=== PATIENT | female | born 1980 | race Caucasian/White ===

== ENCOUNTER 2017-02-20 09:19 | Outpatient (CLI) | payer MEDICAID ==
[~2017-02-20] VITALS: Ht 160 cm; Wt 82.7 kg
[2017-02-20 09:50] VITALS: Ht 160 cm; Wt 82.7 kg
[2017-02-20 09:51] VITALS: BP 124/58; PULSE 99; RESP 22
--- NOTE | 2017-02-20 10:25 | RADRPT ---
PROCEDURE: Obstetrical ultrasound for biophysical profile CLINICAL INDICATION: Biophysical profile. . TECHNIQUE: Obstetrical ultrasound of the uterus for biophysical profile. Transabdominal views are obtained. COMPARISON: 10/12/2016 FINDINGS: Single intrauterine gestation. Presentation: Cephalic. Placenta: Fundal No evidence of placental abruption. No evidence of placenta previa. breathing movement = 2/2 tone = 2/2 motion = 2/2 KELSEA = 2/2 KELSEA = 8.7 cm heart rate: 148 beats per minute IMPRESSION: Single intrauterine gestation. Biophysical profile 11/09 RPTAT: AADD .Moody Virk MD, MD Date Time Electronically viewed and signed by .Moody iVrk MD, on 02/20/2017 10:24 .B/
[2017-02-20] MEDS ORDERED: LACTATED RINGER'S 1,000 ML IV SCH (10:30)
--- NOTE | 2017-02-20 11:32 | PN ---
Triage Information Date/Time Reason for visit: Decreased movement Weeks of Gestation 39 weeks and 1 day /Para Diabetes: none Hypertention: none Objective Vital Signs Date Time Temp Pulse Resp B/P Pulse Ox O2 Delivery O2 Flow Rate FiO2 02/20/17 09:51 98.8 99 22 124/58 99 Room Air Heart Rate: 150's Contractions: None Exam Nurse exam, cervix closed long, vertex -2 station Results/Medications Medications Current Medications Lactated Ringer's (Lr) 1,000 ml @ 125 mls/hr Q8H IV Last administered on 02/20t 10:33; Admin Dose 125 MLS/HR; Start 02/20/17 at 10:30 Disposition: Extended observation, for tachycardia, we will review heart tracing after 1 L of IV is completed FCO OLEARY MD Feb 20, 2017 11:32
== END 2017-02-20 12:46 | disposition home or self-care (01) ==
LOC: OBT 09:19 → L-D 09:20 → OBG 09:59 → OBT 12:46
PROVIDERS: ATTEND Obstetrics & Gynecology
DX: O36.8130 Decreased fetal movements, third trimester, not applicable or unspecified (principal); Z3A.39 39 weeks gestation of pregnancy
CPT/HCPCS: 76818; J7120

== ENCOUNTER 2017-02-22 18:17 | Outpatient (CLI) | payer MEDICAID ==
[~2017-02-22] VITALS: Ht 160 cm; Wt 83.8 kg
--- NOTE | 2017-02-22 19:14 | RADRPT ---
PROCEDURE: US OB. CLINICAL INDICATION: Decreased movement TECHNIQUE: Multiple sonographic images of the pelvis were obtained. The images were reviewed on a PACS workstation. COMPARISON: No prior studies are available for comparison. FINDINGS: There is a single live intrauterine . cardiac activity is identified at a rate of 15 4 beats per minute. presentation is cephalic. Placenta is fundal grade II. Biophysical profile score is as follows: Breathing 2 Movements 2 Tone 2 Fluid volume 2 Amniotic fluid index = 8.4 cm Total biophysical profile score = 8/8 IMPRESSION: Biophysical profile score = 8/8 RPTAT: HH .Jun Eaton MD, MD Date Time Electronically viewed and signed by .Jun Eaton MD, on 02/22/2017 19:14 .W/
[2017-02-22 19:22] VITALS: Ht 160 cm; Wt 83.8 kg
[2017-02-22 19:23] VITALS: BP 114/58; PULSE 85; RESP 18
[2017-02-22] MEDS ORDERED: PNV1TABL12 PO (19:34)
--- NOTE | 2017-02-22 21:16 | PN ---
Triage Information Date/Time Reason for visit: DFM Weeks of Gestation 39 weeks /Para Diabetes: none Hypertention: none Objective Vital Signs Date Time Temp Pulse Resp B/P Pulse Ox O2 Delivery O2 Flow Rate FiO2 02/22/17 19:23 98.8 85 18 114/58 98 Room Air Heart Rate: 120's Heart Rate Comments Category I Contractions: 6-10 Minutes Apart Exam Cervix fingertip Results/Medications Imaging Results BPP 11/09 Disposition: Discharge Assessment/Plan Patient reports good movement while being monitored Follow up with Dr Ordoñez on 02/23/2017 Antepartum testing on 02/24/2017. DEISY SAVAGE MD Feb 22, 2017 21:16
== END 2017-02-22 21:27 | disposition home or self-care (01) ==
LOC: OBT 18:17 → L-D 18:18 → OBT 21:27
PROVIDERS: ATTEND Obstetrics & Gynecology
DX: O36.8130 Decreased fetal movements, third trimester, not applicable or unspecified (principal); O09.523 Supervision of elderly multigravida, third trimester; Z3A.39 39 weeks gestation of pregnancy
CPT/HCPCS: 76818; Z7500; G0463

== ENCOUNTER 2017-02-24 09:40 | Outpatient (CLI) | payer MEDICAID ==
[~2017-02-24] VITALS: Ht 160 cm; Wt 83.6 kg
[~2017-02-24 09:40] MED LIST: PNV1TABL12 PO
[2017-02-24 09:48] VITALS: Ht 160 cm; Wt 83.6 kg
[2017-02-24 09:49] VITALS: BP 124/58; PULSE 94; RESP 20
--- NOTE | 2017-02-24 10:35 | RADRPT ---
PROCEDURE: US biophysical profile. CLINICAL INDICATION: Decreased motion. TECHNIQUE: Multiple sonographic images of the uterus were obtained. The images were revi ewed on a PACS workstation. COMPARISON: No prior studies are available for comparison. FINDINGS: There is a single live intrauterine gestation. heart rate is 174 beats per minute. The position is cephalic. The placenta is fundal grade II with no abruption or previa. The KELSEA is 12.8 cm. (Normal = 5-20 cm.) Breathing Movement: 2 Gross Body Movement: 2 Tone: 2 Qualitative Amniotic Fluid Volume: 2 TOTAL: 8 IMPRESSION: 1. The biophysical score is 8/8. RPTAT: QQ .Terry Forrest MD, MD Date Time Electronically viewed and signed by .Terry Forrest MD, on 02/24/2017 10:34 .R/
--- NOTE | 2017-02-24 10:55 | CONS ---
Date/Time of Note Date/Time of Note DATE: 02/24/17 TIME: 10:49 Consultation Date/Type/Reason Admit Date/Time February 24, 2017 OB triage consult This patient is a 36 years old 2 para 1 with estimated date of confinement of February 26, 2017 which makes her 39 weeks and 5 days . Her chief complaint is low movement since yesterday. On examination she is somewhat overweight patient. Her general vital signs appear to be within normal limits with blood pressure 124/58, pulse rate 94, respiration 20, and temperature 98.5. Constitutional: No chills, No diaphoresis, No disoriented, No febrile, No improved, No no complaints, No other, No poor po, No requiring IVF, No requiring O2 Eyes: No discharge, No no complaints, No other, No pain, No redness, No visual change ENT: No bleeding, No congestion, No discharge, No dysphagia, No no complaints, No other, No pain, No sore throat Respiratory: No cough, No no complaints, No other, No pain, No pleuritic pain, No shortness of breath, No sputum, No wheezing Cardiovascular: No chest pain, No edema, No lightheadedness, No no complaints, No orthopenea, No other, No palpitations, No paroxysmal nocturnal dyspnea Gastrointestinal: other, No blood, No constipation, No decreased appetite, No diarrhea, No flatus, No nausea, No no complaints, No pain, No passing stool, No vomiting Genitourinary: other (We did not do any pelvic examination due to the fact that she did not have any contraction at this time), No bleeding, No discharge, No dysuria, No flank pain, No hematuria, No no complaints Musculoskeletal: No back pain, No bone/joint pain, No neck pain, No no complaints, No other, No restricted range of motion, No swelling Skin: No bruising, No erythema, No laceration, No no complaints, No other, No pruritis, No rash, No skin lesions Neurologic: other (.), No confusion, No dizziness, No focal-weakness, No headache, No no complaints , No seizure, No syncope Additional Comments Her non stress test as I mentioned was reactive On ultrasound study the report was; a single live intrauterine gestation with heart beat of 174 in cephalic presentation, placenta was grade 2 , no evidence of abruption ,her amniotic fluid index was 12.8 cm The biophysical profile was reported 11/09 Disposition; with these finding patient was discharged home and she will be followed in 4 days for further monitoring Social History Smoking Status: Never smoker Exam/Review of Systems Vital Signs Vitals Vital Signs Date Time Temp Pulse Resp B/P Pulse Ox O2 Delivery O2 Flow Rate FiO2 02/24/17 09:49 98.5 94 20 124/58 Room Air CARYN BALL MD Feb 24, 2017 10:55
--- NOTE | 2017-02-24 10:58 | TRIAGE ---
OB Triage Datetime Report Generated by CPN: 02/24/2017 10:57 Datetime: 02/24/2017 10:52 Maternal Assessment Level of Consciousness: Fully Conscious DTR's/Clonus: DTRs 1+ Headache: Denies Blurred Vision: No Respiratory Effort: Unlabored Breath Sounds, Left: Clear and Equal Breath Sounds, Right: Clear and Equal Nausea/Vomiting: Denies RUQ Epigastric Pain: Denies Facial Edema: None Labor Evaluation Frequency: NONE Monitor Mode: External Resting Tone [place]: Relaxed Heart Rate FHR Baseline Rate: 140 Monitor Mode: External US Variability: Moderate 6-25 bpm Accelerations: 15X15 Decelerations: None Category: Category I Pain Assessment Pain Scale: 0 Pain Presence: None/Denies Pain Type: N/A Pain Goal: 3 Vaginal Exam Dilatation (cms): 0.0 Effacement (%): 0 Station: -3 Exam By: ZECHARIAH DIALLO Membrane Status: Intact Vaginal Bleeding: None Cervix, Consistency: Moderate Cervix, Position: Posterior Presentation 'A': Cephalic Datetime: 02/24/2017 10:36 Maternal Assessment Level of Consciousness: Fully Conscious DTR's/Clonus: DTRs 1+ Headache: Denies Blurred Vision: No Respiratory Effort: Unlabored Breath Sounds, Left: Clear and Equal Breath Sounds, Right: Clear and Equal Nausea/Vomiting: Denies RUQ Epigastric Pain: Denies Facial Edema: None Labor Evaluation Frequency: IRREGULAR Monitor Mode: External Duration (sec)5589: 50-02 Quality: Mild Pattern: Normal: <= 5 Contractions in 10 Minutes Resting Tone [place]: Relaxed Heart Rate FHR Baseline Rate: 140 Monitor Mode: External US Variability: Moderate 6-25 bpm Accelerations: 15X15 Decelerations: None Category: Category I Pain Assessment Pain Scale: 0 Pain Presence: None/Denies Pain Type: N/A Pain Goal: 3 Membrane Status: Intact Datetime: 02/24/2017 09:45 Time of Arrival: 02/24/2017 09:40 EGA: 39.5 Arrived By: Ambulatory Arrived From: Home Chief Complaint: FOLLOW UP NST AND BPP Movement: Present Contractions: Irregular Rupture of Membranes: Denies Vaginal Discharge: Denies Recent Sexual Intercouse: Denies Abdominal Trauma: Not Applicable Patient Complaints: Other Time Provider Notified: 02/24/2017 09:55 Provider Notified: MANUEL Initial Plan: BPP, NST Datetime: 02/24/2017 09:44 Stage of : OB Triage Assessment Type: Triage Maternal Assessment Level of Consciousness: Fully Conscious Headache: Denies Blurred Vision: No Respiratory Effort: Unlabored Nausea/Vomiting: Denies RUQ Epigastric Pain: Denies Lower Extremities Edema: None Degree: None Upper Extremities Edema: None Degree: None Facial Edema: None Monitor Mode: External Monitor Mode: External US Pain Assessment Pain Scale: 0 Pain Presence: None/Denies Pain Type: N/A Pain Goal: 0 Datetime: 02/22/2017 21:09 Stage of : OB Triage Labor Evaluation Frequency: X3 Monitor Mode: External Duration (sec)2399: 60-120 Quality: Mild Pattern: Normal: <= 5 Contractions in 10 Minutes Resting Tone [place]: Relaxed Heart Rate FHR Baseline Rate: 135 Monitor Mode: External US FHR Baseline Changes: No Baseline Change Variability: Moderate 6-25 bpm Accelerations: 15X15 Decelerations: None Category: Category I Datetime: 02/22/2017 20:01 Stage of : OB Triage Labor Evaluation Frequency: X2 Monitor Mode: External Duration (sec)2399: 40-130 Quality: Mild Resting Tone [place]: Relaxed Heart Rate FHR Baseline Rate: 140 Monitor Mode: External US Variability: Moderate 6-25 bpm Accelerations: 15X15 Decelerations: None Category: Category I Pain Assessment Pain Scale: 3 Pain Presence: Intermittent Pain Type: Contraction Pain Location: Abdomen Pain Relief Measures: Comfort Measures Pain Assessment Comments: WITH UCS Datetime: 02/22/2017 19:52 Stage of : OB Triage Datetime: 02/22/2017 19:18 Assessment Type: Triage Maternal Assessment Level of Consciousness: Fully Conscious DTR's/Clonus: DTRs Absent Headache: Denies Blurred Vision: No Respiratory Effort: Unlabored Breath Sounds, Left: Clear and Equal Breath Sounds, Right: Clear and Equal Nausea/Vomiting: Denies RUQ Epigastric Pain: Denies Lower Extremities Edema: None Degree: None Upper Extremities Edema: None Degree: None Facial Edema: None Fall Risk Assessment History of Falling: (0) No Secondary Diagnosis: (0) No Ambulatory Aid: (0) Bedrest/Nurse Assist IV Therapy: (0) No Gait: (0) Normal/Bedrest/Immobile Mental Status: (0) Oriented to Own Ability Fall Score: 0 Fall Risk Score Definition: No Risk: No action required Datetime: 02/22/2017 19:16 Time of Arrival: 02/22/2017 18:10 EGA: 39.3 Arrived By: Ambulatory Arrived From: Home Chief Complaint: F/U DFM Movement: Present Contractions: Occasional Rupture of Membranes: Denies Vaginal Bleeding: None Vaginal Discharge: Denies Recent Sexual Intercouse: Denies Abdominal Trauma: Not Applicable Patient Complaints: None Initial Plan: VS, EFM, BPP Datetime: 02/22/2017 19:05 Stage of : OB Triage Monitor Mode: External Monitor Mode: External US Datetime: 02/20/2017 12:16 Comments: maternal h.r. p/u w/ pt. moving to sit up and drink water. maternal h.r. verified throug h pulse ox Datetime: 02/20/2017 12:11 Labor Evaluation Frequency: irreg Monitor Mode: External Duration (sec)2399: 30-90 Quality: Mild Resting Tone [place]: Relaxed Heart Rate FHR Baseline Rate: 150 Monitor Mode: External US Variability: Moderate 6-25 bpm Accelerations: 15X15 Decelerations: None Datetime: 02/20/2017 11:30 Labor Evaluation Frequency: irreg Monitor Mode: External Duration (sec)2399: 90 Quality: Mild Resting Tone [place]: Relaxed Heart Rate FHR Baseline Rate: 150 Monitor Mode: External US Variability: Minimal - Undetectable to <=5 bpm Accelerations: 15X15 Decelerations: None Datetime: 02/20/2017 11:25 Comments: dr. manuel rvwd. strip from time arrived until now. cont. iv hydration and re-eval Datetime: 02/20/2017 11:20 Pain Presence: None/Denies Datetime: 02/20/2017 10:36 Vaginal Exam Dilatation (cms): 0.0 Effacement (%): 0 Station: 0 Exam By: -3 Vaginal Bleeding: None Cervix, Consistency: Firm Cervix, Position: Posterior Presentation 'A': Cephalic Datetime: 02/20/2017 09:55 Heart Rate FHR Baseline Rate: 170 Variability: Minimal - Undetectable to <=5 bpm Comments: cont. to monitor. increased movements are visisble to rn and pt. and fob Datetime: 02/20/2017 09:42 Comments: increased movement visible to rn and pt. at this time. Datetime: 02/20/2017 09:40 Assessment Type: Triage Maternal Assessment Level of Consciousness: Fully Conscious DTR's/Clonus: DTRs 2+; No Clonus Headache: Denies Blurred Vision: No Respiratory Effort: Unlabored; Regular Rhythm; Equal Expansion Breath Sounds, Left: Clear and Equal Breath Sounds, Right: Clear and Equal Nausea/Vomiting: Denies RUQ Epigastric Pain: Denies Lower Extremities Edema: None Upper Extremities Edema: None Facial Edema: None Fall Risk Assessment History of Falling: (0) No Secondary Diagnosis: (0) No Ambulatory Aid: (0) Bedrest/Nurse Assist IV Therapy: (0) No Gait: (0) Normal/Bedrest/Immobile Mental Status: (0) Oriented to Own Ability Fall Score: 0 Fall Risk Score Definition: No Risk: No action required Datetime: 02/20/2017 09:38 EGA: 39.1 Datetime: 02/20/2017 09:37 Time of Arrival: 02/20/2017 09:32 Arrived By: Wheelchair Arrived From: Other Unit in Hospital Chief Complaint: rcvd. pt. via wheelchair from ob triage. note already in cpn Movement: Decreased Contractions: Occasional Rupture of Membranes: Denies Vaginal Bleeding: None Vaginal Discharge: Denies Recent Sexual Intercouse: Denies Abdominal Trauma: Not Applicable Patient Complaints: Other Additional Patient Complaints: pt. states decreased movement since 02/19/17 Initial Plan: efm bpp nst Datetime: 02/20/2017 09:35 Contraction Comments: denies Pain Presence: None/Denies
== END 2017-02-24 10:55 | disposition home or self-care (01) ==
LOC: OBT 09:40 → L-D 09:40 → OBT 10:55
PROVIDERS: ATTEND Obstetrics & Gynecology
DX: O36.8130 Decreased fetal movements, third trimester, not applicable or unspecified (principal); Z3A.39 39 weeks gestation of pregnancy
CPT/HCPCS: 76818; G0463

== ENCOUNTER 2017-02-25 08:25 | Inpatient (IN) | payer MEDICAID ==
[~2017-02-25] VITALS: Ht 160 cm; Wt 84.9 kg
[~2017-02-25 08:25] MED LIST changes: +EPHEDrine SULFATE 50 MG/5 ML SYG ONE; +METHYLERGONOVINE 0.2 MG INJ ONE
[2017-02-25 08:43] VITALS: BP 128/61; PULSE 88; Ht 160 cm; Wt 84.9 kg
[2017-02-25] MEDS ORDERED: LACTATED RINGER'S 1,000 ML IV SCH (09:25)
[2017-02-25] MEDS ORDERED: METHYLERGONOVINE 0.2 MG INJ IM PRN ×2 (09:30→16:00)
[2017-02-25] MEDS ORDERED: OXYTOCIN 30 UNITS/LR 500 ML IV SCH ×3 (09:30→10:30)
[2017-02-25] MEDS ORDERED: CARBOPROST 250 MCG INJ IM PRN ×2 (09:30→16:00)
[2017-02-25] MEDS ORDERED: BUTORPHANOL 2 MG INJ IV PRN (09:30)
[2017-02-25] MEDS ORDERED: IBUPROFEN 600 MG TAB PO PRN (09:30)
[2017-02-25] MEDS ORDERED: MISOPROSTOL 200 MCG TAB PR PRN ×2 (09:30→16:00)
[2017-02-25] MEDS ORDERED: OXYTOCIN 30 UNITS/LR 500 ML IV PRN ×2 (09:30→16:00)
[2017-02-25] MEDS ORDERED: LIDOCAINE 1% (MPF) 30 ML INJ INJ PRN (09:30)
[2017-02-25] MEDS ORDERED: AMPICILLIN 2 GM/NS (PMX) 100 ML IV ONE (09:30)
[2017-02-25] MEDS ORDERED: HYDROCODONE/APAP (5/325) TAB PO PRN ×2 (09:30→16:00)
--- NOTE | 2017-02-25 09:34 | TRIAGE ---
OB Triage Datetime Report Generated by CPN: 02/25/2017 09:34 Datetime: 02/25/2017 09:05 Assessment Type: Admission Assessment Vaginal Bleeding: None Level of Consciousness: Fully Conscious DTR's/Clonus: DTRs 2+; No Clonus Headache: Denies Blurred Vision: No Respiratory Effort: Unlabored; Regular Rhythm; Equal Expansion Breath Sounds, Left: Clear and Equal Breath Sounds, Right: Clear and Equal Nausea/Vomiting: Denies RUQ Epigastric Pain: Denies Lower Extremities Edema: Bilateral Lower Extremities Degree: 1+ Upper Extremities Edema: None Degree: None Facial Edema: None History of Falling: (0) No Secondary Diagnosis: (0) No Ambulatory Aid: (0) Bedrest/Nurse Assist IV Therapy: (0) No Gait: (0) Normal/Bedrest/Immobile Mental Status: (0) Oriented to Own Ability Fall Score: 0 Fall Risk Score Definition: No Risk: No action required Frequency: 5 Duration (sec)2399: 60 Quality: Moderate Pattern: Normal: <= 5 Contractions in 10 Minutes Resting Tone [place]: Relaxed FHR Baseline Rate: 160 Variability: Moderate 6-25 bpm Accelerations: 15X15 Decelerations: None Category: Category I Pain Scale: 6 Pain Presence: Intermittent Pain Type: Contraction Pain Location: Abdomen Pain Goal: 4 Membrane Status: Intact Datetime: 02/25/2017 08:37 Stage of : OB Triage Assessment Type: Triage Level of Consciousness: Fully Conscious DTR's/Clonus: DTRs 2+; No Clonus Headache: Denies Blurred Vision: No Respiratory Effort: Unlabored; Regular Rhythm; Equal Expansion Breath Sounds, Left: Clear and Equal Breath Sounds, Right: Clear and Equal Nausea/Vomiting: Denies RUQ Epigastric Pain: Denies Facial Edema: None Temperature Route: Axillary History of Falling: (0) No Secondary Diagnosis: (0) No Ambulatory Aid: (0) Bedrest/Nurse Assist IV Therapy: (0) No Gait: (0) Normal/Bedrest/Immobile Mental Status: (0) Oriented to Own Ability Fall Score: 0 Fall Risk Score Definition: No Risk: No action required Frequency: X1 Monitor Mode: External Duration (sec)2399: 30 Quality: Mild Pattern: Normal: <= 5 Contractions in 10 Minutes Resting Tone [place]: Relaxed FHR Baseline Rate: 150 Monitor Mode: External US Variability: Minimal - Undetectable to <=5 bpm Decelerations: None Category: Category II Pain Scale: 8 Pain Presence: Intermittent Pain Type: Cramping; Contraction Pain Location: Abdomen Pain Goal: 3 Pain Relief Measures: Comfort Measures Dilatation (cms): 2.5 Effacement (%): 80 Station: -2 Exam By: Kurt PALENCIA Membrane Status: Intact Datetime: 02/25/2017 08:35 Time of Arrival: 02/25/2017 08:25 EGA: 39.6 Arrived By: Ambulatory Arrived From: Home Chief Complaint: C/O UC'S SINCE 4AM Q 5MIN, SM AMT OF BLEEDING, DENIES LEAKING OF FLUID Movement: Present Contractions: Regular Rupture of Membranes: Denies Vaginal Bleeding: Small Vaginal Discharge: Denies Recent Sexual Intercouse: Denies Abdominal Trauma: Not Applicable Patient Complaints: Contractions; Cramping Initial Plan: MONITOR, VE Datetime: 02/24/2017 09:45 EGA: 39.5 Datetime: 02/22/2017 19:18 Fall Score: 0 Fall Risk Score Definition: No Risk: No action required Datetime: 02/22/2017 19:16 EGA: 39.3 Datetime: 02/20/2017 09:40 Fall Score: 0 Fall Risk Score Definition: No Risk: No action required Datetime: 02/20/2017 09:38 EGA: 39.1
[2017-02-25] MEDS ORDERED: LACTATED RINGER'S 1,000 ML IV PRN (10:00)
[2017-02-25 10:22] LABS: BASOPHIL # 0.1 10^3/ul (0.0-0.1); BASOPHILS % 0.6 % (0.0-2.0); EOSINOPHILS # 0.2 10^3/ul (0.0-0.5); EOSINOPHILS % 1.5 % (0.0-7.0); LYMPHOCYTES # 1.7 10^3/ul (0.8-2.9); LYMPHOCYTES % 14.8 % (15.0-51.0); MEAN CORPUSCULAR HEMOGLOBIN 30.4 pg (29.0-33.0); MEAN CORPUSCULAR HGB CONC 34.3 g/dl (32.0-37.0); MEAN CORPUSCULAR VOLUME 88.6 fl (82.0-101.0); MEAN PLATELET VOLUME 10.3 fl (7.4-10.4); MONOCYTE # 0.8 10^3/ul (0.3-0.9); MONOCYTES % 6.8 % (0.0-11.0); NEUTROPHIL # 8.6 10^3/ul (1.6-7.5); NEUTROPHILS % 75.3 % (39.0-77.0); PLATELET COUNT 245 10^3/UL (140-415); RED BLOOD COUNT 3.95 10^6/ul (4.20-5.40); RED CELL DISTRIBUTION WIDTH 14.1 % (11.5-14.5); WHITE BLOOD COUNT 11.4 10^3/ul (4.8-10.8)
[2017-02-25] MEDS ORDERED: MINERAL OIL LIGHT 10 ML VIAL TOP ONE (10:30)
[2017-02-25] MEDS ORDERED: FENTAnyl 2MCG/ML-ROPIV 0.2% 100 ML ONE (11:25)
[2017-02-25 11:45] LABS: INR 0.88; PROTIME 11.9 Sec (12.2-14.2); PT RATIO 0.9
[2017-02-25] MEDS ORDERED: CEFAZOLIN 2 GM/50 ML (PMX) 50 ML IVPB ONE ×3 (12:13→13:30)
[2017-02-25] MEDS ORDERED: METOCLOPRAMIDE 10 MG INJ ONE (12:26)
[2017-02-25] MEDS ORDERED: ONDANSETRON 4 MG INJ ONE (12:27)
[2017-02-25] MEDS ORDERED: PHENYLephrine (100 MCG/ML) 5ML SYG ONE (12:32)
[2017-02-25] MEDS ORDERED: morphine SULFATE/PF (10 MG/10 ML) INJ ONE (12:43)
[2017-02-25] MEDS ORDERED: PROPOFOL 20 ML ONE (12:45)
[2017-02-25] MEDS ORDERED: LIDOCAINE 2%/EPI 30 ML INJ ONE (12:45)
[2017-02-25 12:50] LABS: Arterial Cord Blood pCO2 115.6 mmHG (25-50); CBA Base Excess -9.2 mmol/L; CBA Total Hemglobin 14.1 g/dl; Fraction OxyHgb Cord Arterial 5.2 %; MODE ROOM AIR; MetHgb Cord Arterial 2.5 %; Sample Type CBA
[2017-02-25 12:51] LABS: CBV Base Excess -5.4 mmol/L; CBV COHb 1.6 %; CBV Oxygen Sat 84.3 mmHG; Cord Blood Venous pO2 47.2 mmHG (15.0-45.0); Fraction OxyHgb Cord Venous 82.4 %; MODE ROOM AIR; MetHgb Cord Venous 0.7 %; Sample Type CBV
[2017-02-25] MEDS ORDERED: AMPICILLIN 1 GM/NS (PMX) 50 ML IV SCH (13:30)
[2017-02-25] MEDS ORDERED: AZITHROMYCIN 500MG/NS (PMX) 250 ML IVPB SCH (13:30)
--- NOTE | 2017-02-25 13:53 | OPR ---
Operative Report Planned Procedure Free Text/Dictation This is a 36 years old female SAB 1 admitted to [facility] in early labor pelvic examination and admission cervix 2-1 /2-3 cm dilated 80% effaced vertex at -2 station due to inadequate labor force and frequency of contraction she required labor augmentation with low-dose Pitocin at approximately 4 cm cervical dilatation she requested labor epidural , she progressed to 7cm with vertex presentation and bulging bag, amniotomy performed at 7 cm clear amniotic fluid noted her labor continued to progress when cervix was completely dilated her attending nurse noted sudden prolonged variable deceleration down into the 90s ,when she was checked by her nurse, she noted prolapsed cord approximately 10-12 cm of umbilical cord in the vaginal canal, she kept her hand in the vagina to push the baby's head up to protect umbilical cord from compression and called for an emergency ,time from decision to delivery of the baby approximately 12-13 minute.. Procedure date Feb 25, 2017 Procedure(s) Emergency primary section Performed by see signature line Outpatient Therapist DR MCCOY Anesthesiologist: CHELSEA OSBORNE MD Pre-procedure diagnosis Term in labor cord prolapse Anesthesia Type: epidural Post-Procedure Post-procedure diagnosis Term in active labor, sodium cord prolapse Findings Live baby girl 8 and 9 Estimated Blood Loss: 600 - 700 mls Specimen(s) none Grafts/Implant(s) none Complication(s) none Pt Condition post procedure: stable Procedure Description Under satisfactory epidural anesthesia patient prepped and draped and placed in supine position. Pfannenstiel incision was made. Incision carried through the subcutaneous tissue. Fascia incised to the length of incision. Rectus muscle divided in midline. Peritoneum exposed and entered to a vertical incision. Exploration of abdomen revealed [gravid uterus at term normal-appearing tubes and ovaries.] Bladder flap was developed. Transverse incision was made in the lower segment of the uterus. Amniotic sac ruptured, [clear amniotic fluid noted. ] Live baby girl was delivered from [place] breech presentation with assisted breech extraction shoulders delivered without any difficulty head delivered with Mauriceau maneuver (it seems during the process of transferring patient from her room to the OR baby has changed position from vertex to breech presentation )Naso oropharyngeal suction was performed. Baby handed to the team for immediate attention. Patient received 20 units of Pitocin. Placenta delivered manually intact. Uterine cavity cleaned with a wet sponge and drainage established. Uterus closed in 2 layers using Monocryl #1 in continuous fashion. Peritoneal cavity irrigated with warm saline. Sponge needle instrument reported to be correct. Abdominal peritoneum closed with 2-0 chromic catgut continuously. Fascia closed with #1 PDS in a continuous fashion. Subcutaneous tissue irrigated with warm saline and approximated with 2-0 chromic catgut skin closed N sorb. Estimated blood loss [6-700 cc]. Urine bag containing [200] mL of [clear] urine. Patient tolerated procedure well and transferred to recovery room in good condition. FCO OLEARY MD Feb 25, 2017 13:41
[2017-02-25] MEDS ORDERED: NALOXONE (0.4 MG/ML) INJ IV PRN ×2 (14:00)
[2017-02-25] MEDS ORDERED: FENTAnyl 2MCG/ML-ROPIV 0.2% 100 ML BAG EPI SCH (14:00)
[2017-02-25] MEDS ORDERED: ONDANSETRON 4 MG INJ IV PRN ×2 (14:00)
[2017-02-25] MEDS ORDERED: morphine (1 MG/ML) 10ML SYRINGE IV PRN ×3 (14:00)
[2017-02-25] MEDS ORDERED: morphine 2 MG INJ IV PRN ×2 (14:00)
[2017-02-25] MEDS ORDERED: morphine 4 MG/ML VIAL IV PRN (14:00)
[2017-02-25] MEDS ORDERED: DIPHENHYDRAMINE 50 MG INJ IV PRN ×2 (14:00)
[2017-02-25] MEDS ORDERED: KETOROLAC 30 MG INJ IV PRN (14:00)
--- NOTE | 2017-02-25 14:01 | HP ---
Date/Time of Note Date/Time of Note DATE: 02/25/17 TIME: 13:54 OB - History Hx of Present Free Text/Dictation 36 years old female SAB 1 EDC February 26, 2017 admitted to the hospital in early labor pelvic examination on admission cervix 3 cm dilated 80% effaced vertex at -2 station, contraction 2-3 minutes with inefficient quality, she may require labor augmentation Chief Complaint: Labor contraction Estimated Due Date: Feb 26, 2017 : 3 Para: 1 Spontaneous : 1 Care: Good Care Ultrasounds: Normal mid trimester US Obstetrical Complications: None Medical Complications: None Past Family/Social History * Past Medical, Surgical, Family and Obstetric Histories reviewed from chart. Rubella: immune RPR/VDRL: Negative GBS Status: Negative HBsAG: Negative OB Admission Exam Vital Signs Vital Signs Vital Signs Date Time Temp Pulse Resp B/P Pulse Ox O2 Delivery O2 Flow Rate FiO2 02/25/17 08:43 98.1 88 128/61 Physical Exam HEENT: WNL Heart: Rhythm Normal Lungs: Clear, Equal Abdomen: WNL Extremities: Normal Reflexes: Normal Cervical Dilatation: 3cm Effacement: Other (80%) Station: -2 Membranes: Intact Heart Rate: 130's Accelerations: Accelerations Present Decelerations: No Decelerations Varibility: Moderate Contractions on Admission: < 5 Minutes Apart Intensity: Mild Last 72 hours Lab Results CBC & BMP 02/25/17 09:46 OB Assessment/Plan Reason for admission: other (Labor) Other plan: 36 years old female EDC February 26 admitted to [facility] in early labor cervical dilatation on admission cervix 3 cm dilated 80% effaced vertex at -2 station due to low intensity of the contraction she may require labor augmentation with Pitocin IV infusion. FCO OLEARY MD Feb 25, 2017 14:01
[2017-02-25 15:35] VITALS: BP 108/56; PULSE 99; RESP 17
[2017-02-25] MEDS ORDERED: LANOLIN 7 GM TUBE TOP PRN (16:00)
[2017-02-25] MEDS ORDERED: CEFAZOLIN 1 GM/50 ML (PMX) 50 ML IVPB SCH (16:00)
[2017-02-25] MEDS ORDERED: OXYCODONE/ACETAMINOPHEN (5/325) TAB PO PRN (16:00)
[2017-02-25] MEDS ORDERED: CEFAZOLIN 2 GM/50 ML (PMX) 50 ML IVPB SCH (18:00)
[2017-02-25] MEDS: OXYTOCIN 30 UNITS/LR 500 ML IV SCH ×2 (18:37→23:01)
[2017-02-25 19:50] VITALS: BP 121/75; PULSE 100; RESP 19
[2017-02-25] MEDS: CEFAZOLIN 2 GM/50 ML (PMX) 50 ML IVPB SCH (20:29)
[2017-02-25] MEDS: KETOROLAC 30 MG INJ IV PRN (20:35)
[2017-02-26] VITALS: BP 113/63; PULSE 99; RESP 18
[2017-02-26] MEDS: KETOROLAC 30 MG INJ IV PRN ×2 (02:30→08:33)
[2017-02-26] MEDS: OXYTOCIN 30 UNITS/LR 500 ML IV SCH ×5 (03:33→15:33)
[2017-02-26 04:00] VITALS: BP 105/49; PULSE 104; RESP 19
[2017-02-26] MEDS: CEFAZOLIN 2 GM/50 ML (PMX) 50 ML IVPB SCH ×2 (05:57→13:20)
[2017-02-26 08:00] VITALS: BP 112/55; PULSE 101; RESP 16
[2017-02-26 08:31] LABS: RUBELLA ANTIBODY - IGG 2.78 index
[2017-02-26] MEDS: SENNA/DOCUSATE NA (8.6MG/50MG) TAB PO SCH ×2 (08:33→21:37)
[2017-02-26] MEDS: LACTATED RINGER'S 1,000 ML IV SCH ×2 (08:39→15:00)
[2017-02-26 09:58] LABS: BASOPHIL # 0.1 10^3/ul (0.0-0.1); BASOPHILS % 0.3 % (0.0-2.0); EOSINOPHILS # 0.1 10^3/ul (0.0-0.5); EOSINOPHILS % 0.6 % (0.0-7.0); HEMATOCRIT 27.6 % (37.0-47.0); HEMOGLOBIN 9.4 g/dl (12.0-16.0); LYMPHOCYTES # 1.2 10^3/ul (0.8-2.9); LYMPHOCYTES % 7.7 % (15.0-51.0); MEAN CORPUSCULAR HEMOGLOBIN 30.6 pg (29.0-33.0); MEAN CORPUSCULAR HGB CONC 34.1 g/dl (32.0-37.0); MEAN CORPUSCULAR VOLUME 89.9 fl (82.0-101.0); MEAN PLATELET VOLUME 10.5 fl (7.4-10.4); MONOCYTE # 0.8 10^3/ul (0.3-0.9); MONOCYTES % 4.9 % (0.0-11.0); NEUTROPHIL # 13.5 10^3/ul (1.6-7.5); PLATELET COUNT 211 10^3/UL (140-415); RED BLOOD COUNT 3.07 10^6/ul (4.20-5.40); RED CELL DISTRIBUTION WIDTH 14.6 % (11.5-14.5); WHITE BLOOD COUNT 15.8 10^3/ul (4.8-10.8)
[2017-02-26 12:00] VITALS: BP 116/66; PULSE 105; RESP 17
[2017-02-26] MEDS: OXYCODONE/ACETAMINOPHEN (5/325) TAB PO PRN ×3 (12:29→21:37)
--- NOTE | 2017-02-26 12:52 | PN ---
Date/Time of Note Date/Time of Note DATE: 02/26/17 TIME: 12:51 OB Subjective Subjective Subjective Patient reports some pain. Has not ambulated yet. Denies nausea. OB Objective Objective Objective Gen: NAD Abd: I-C/D/I OB Assessment/Plan Other Assessment: POD1 Other plan: -continue routine care -anticipate discharge home 2-3 days TOY RAM Feb 26, 2017 12:52
[2017-02-26] MEDS: FERROUS SULFATE (EC) 325 MG TAB PO SCH ×2 (13:25→21:37)
[2017-02-26 15:45] VITALS: BP 105/53; PULSE 91; RESP 17
[2017-02-26] MEDS: IBUPROFEN 600 MG TAB PO PRN (16:22)
[2017-02-26] MEDS ORDERED: IBUPROFEN 600 MG TAB PO SCH (18:00)
[2017-02-26] MEDS: NA PHOSPHATE/BIPHOS 133 ML ENEMA PR PRN (18:56)
[2017-02-26 20:00] VITALS: BP 120/56; PULSE 100; RESP 18
--- NOTE | 2017-02-26 21:18 | PN ---
Date/Time of Note Date/Time of Note DATE: 02/26/17 TIME: 21:16 Assessment/Plan VTE Prophylaxis VTE Prophylaxis Intervention: ambulation Lines/Catheters IV Catheter Type (from Nrsg): Peripheral IV Subjective 24 Hr Interval Summary Free Text/Dictation Aneshtesia Note A 36 year female S/p duramorph pod #1 is doing well, pain and N/V are controlled , no headache , snsory deficit, back pain. care per surgery Exam/Review of Systems Vital Signs Vitals Vital Signs Date Time Temp Pulse Resp B/P Pulse Ox O2 Delivery O2 Flow Rate FiO2 02/26/17 15:45 97.4 91 17 105/53 Room Air 02/26/17 05:28 96 21 Intake and Output 02/25/17 02/25/17 02/26/17 15:00 23:00 07:00 Intake Total 1100 ml 1050 ml 1050 ml Output Total 500 ml 650 ml 280 ml Balance 600 ml 400 ml 770 ml Results Result Diagram: 02/26/17 0814 Results 24 hrs Laboratory Tests Test 02/26/17 08:14 White Blood Count 15.8 #H Red Blood Count 3.07 #L Hemoglobin 9.4 #L Hematocrit 27.6 #L Mean Corpuscular Volume 89.9 Mean Corpuscular Hemoglobin 30.6 Mean Corpuscular Hemoglobin Concent 34.1 Red Cell Distribution Width 14.6 H Platelet Count 211 Mean Platelet Volume 10.5 H Neutrophils % 86.0 H Lymphocytes % 7.7 L Monocytes % 4.9 Eosinophils % 0.6 Basophils % 0.3 Nucleated Red Blood Cells % 0.0 Neutrophils # 13.5 H Lymphocytes # 1.2 Monocytes # 0.8 Eosinophils # 0.1 Basophils # 0.1 Nucleated Red Blood Cells # 0.0 Medications Medications Current Medications Acetaminophen/ Hydrocodone Bitart ([place] (5/325)) 1 tab Q4H PRN PO PAIN LEVEL 4 -6; Start 02/25/17 at 16:00 Acetaminophen/ Hydrocodone Bitart ([place] (5/325)) 2 tab Q4H PRN PO PAIN LEVEL 7 -10; Start 02/25/17 at 16:00 Oxycodone/ Acetaminophen (Percocet (5/ 325)) 1 tab Q4H PRN PO PAIN LEVEL 4-6; Start 02/25/17 at 16:00 Oxycodone/ Acetaminophen (Percocet (5/ 325)) 2 tab Q4H PRN PO PAIN LEVEL 7-10 Last administered on 02/26/17 17:16; Admin Dose 2 TAB; Start 02/25/17 at 16: 00 Simethicone (Mylicon) 160 mg Q8H PRN PO DISTENSION/GAS/BLOATING Last administered on 02/26/17 20:47; Admin Dose 160 MG; Start 02/25/17 at 16:00 Senna/Docusate Sodium (Senokot-S) 1 tab BID PO Last administered on 02/26/17 08:33; Admin Dose 1 TAB; Start 02/26/17 at 09:00 Diphtheria/ Tetanus/Acell Pertussis 0.5 ml 0.5 ml ONCE ONCE IM* ; Start at 09:00; Stop 02/28/17 at 09:01 Oxytocin/Lactated Ringer's 500 ml @ 0 mls/hr ONCE PRN IV For Hemorrhage Management; Start 02/25/17 at 16:00 Methylergonovine Maleate (Methergine) 0.2 mg ONCE PRN IM VAGINAL BLEEDING; Start 02/25/17 at 16:00 Carboprost Tromethamine (Hemabate) 250 mcg ONCE PRN IM VAGINAL BLEEDING; Start 02/25/17 at 16:00 Misoprostol 1000 mcg 1,000 mcg ONCE PRN DC VAGINAL BLEEDING; Start 02/25/17 at 16:00 Oxytocin/Lactated Ringer's 500 ml @ 125 mls/hr Q4H IV Last administered on 03:48; Admin Dose 125 MLS/HR; Start 02/25/17 at 15:33 Lactated Ringer's (Lr) 1,000 ml @ 125 mls/hr Q8H IV Last administered on 02/26 08:39; Admin Dose 125 MLS/HR; Start 02/26/17 at 07:00 Ferrous Sulfate (Ferrous Sulfate (Ec)) 325 mg BID PO Last administered on 02/26 13:25; Admin Dose 325 MG; Start 02/26/17 at 13:30 Ibuprofen (Motrin) 600 mg Q6H PRN PO BREAKTHROUGH PAIN Last administered on 16:22; Admin Dose 600 MG; Start 02/26/17 at 16:00 Sodium Biphosphate/ Sodium Phosphate (Fleet Enema) 133 ml DAILY PRN DC CONSTIPATION Last administered on 02/26/17t 18:56; Admin Dose 133 ML; Start at 16:30 Influenza Virus Vaccine (Fluzone) 0.5 ml ONCE ONCE IM* ; Start 02/27/17 at 09: 00; Stop 02/27/17 at 09:01 CHELSEA OSBORNE MD Feb 26, 2017 21:18
[2017-02-27] MEDS: IBUPROFEN 600 MG TAB PO PRN ×2 (01:04→12:02)
[2017-02-27 04:00] VITALS: BP 122/67; PULSE 101; RESP 18
[2017-02-27] MEDS: OXYCODONE/ACETAMINOPHEN (5/325) TAB PO PRN ×4 (04:13→19:02)
[2017-02-27 08:30] VITALS: BP 121/66; PULSE 113; RESP 18
[2017-02-27] MEDS: SENNA/DOCUSATE NA (8.6MG/50MG) TAB PO SCH ×2 (08:40→21:25)
[2017-02-27] MEDS: FERROUS SULFATE (EC) 325 MG TAB PO SCH ×2 (08:40→21:25)
[2017-02-27] MEDS ORDERED: INFLUENZA VIRUS VACCINE 0.5 ML (DISPENSING) IM* ONE (09:00)
[2017-02-27] MEDS: NA PHOSPHATE/BIPHOS 133 ML ENEMA PR PRN (11:10)
--- NOTE | 2017-02-27 11:51 | QN ---
Documentation Comment Post day 2 Afebrile Vital signs are stable Abdomen soft incision dry,, lochia moderate, bowel sounds present, she had normal BM extremity normal, plan of a.m. discharge discussed . FCO OLEARY MD Feb 27, 2017 11:51
[2017-02-27] MEDS: HYDROCODONE/APAP (5/325) TAB PO PRN (22:07)
[2017-02-27 23:00] VITALS: BP 138/63; PULSE 110; RESP 19
[2017-02-28] MEDS: IBUPROFEN 600 MG TAB PO PRN ×2 (00:34→12:17)
[2017-02-28] MEDS: OXYCODONE/ACETAMINOPHEN (5/325) TAB PO PRN ×5 (03:06→20:26)
[2017-02-28 04:00] VITALS: BP 108/63; PULSE 101; RESP 19
[2017-02-28 08:28] VITALS: BP 130/71; PULSE 101
--- NOTE | 2017-02-28 08:29 | RADRPT ---
PROCEDURE: XR Abdomen. CLINICAL INDICATION: Distension TECHNIQUE: Supine portable AP abdomen x-ray. COMPARISON: None. FINDINGS: The colon is distended. No dilated, gas filled loops of small bowel are seen. There are no abnormal calcifications overlying the urinary tracts. The osseus structures are unremarkable. There is a large pannus. IMPRESSION: Distended colon. Physician Kilo Date Time Electronically viewed and signed by Physician Kilo on 02/28/2017 08:28 CS/
[2017-02-28] MEDS ORDERED: DIPHTH/TET/ACEL PERTUSS (ADULT) 0.5 ML VIAL IM* ONE (09:00)
[2017-02-28] MEDS: FERROUS SULFATE (EC) 325 MG TAB PO SCH ×2 (10:05→20:26)
[2017-02-28] MEDS: SENNA/DOCUSATE NA (8.6MG/50MG) TAB PO SCH ×2 (10:05→20:26)
[2017-02-28] MEDS ORDERED: BISACODYL 10 MG SUPP PR ONE (12:30)
--- NOTE | 2017-02-28 13:19 | QN ---
Documentation Comment Patient is postop day 3 status post Patient is complaining of abdominal pain and distention She had small bowel movement, no flatus Positive voiding urine Vital signs stable and afebrile Abdomen soft, positive bowel sounds, distended Incision clean dry intact Extremities nontender CBC within normal limits PROCEDURE: XR Abdomen. CLINICAL INDICATION: Distension TECHNIQUE: Supine portable AP abdomen x-ray. COMPARISON: None. FINDINGS: The colon is distended. No dilated, gas filled loops of small bowel are seen. There are no abnormal calcifications overlying the urinary tracts. The osseus structures are unremarkable. There is a large pannus. IMPRESSION: Distended colon. Physician Kilo Date Time Electronically viewed and signed by Physician Kilo on 02/28/2017 08: 28 CS/ CC: FCO OLEARY MD Assessment and plan CBC , CMP today Dulcolax suppository Patient encouraged to ambulate Keep on clear liquid diet RAN GARCÍA MD Feb 28, 2017 13:19
[2017-02-28 13:45] LABS: BASOPHILS % 0.3 % (0.0-2.0); EOSINOPHILS # 0.3 10^3/ul (0.0-0.5); HEMATOCRIT 25.5 % (37.0-47.0); HEMOGLOBIN 8.7 g/dl (12.0-16.0); LYMPHOCYTES % 6.7 % (15.0-51.0); MEAN CORPUSCULAR HEMOGLOBIN 30.6 pg (29.0-33.0); MEAN CORPUSCULAR HGB CONC 34.1 g/dl (32.0-37.0); MEAN CORPUSCULAR VOLUME 89.8 fl (82.0-101.0); MEAN PLATELET VOLUME 9.5 fl (7.4-10.4); MONOCYTE # 0.6 10^3/ul (0.3-0.9); MONOCYTES % 4.1 % (0.0-11.0); NEUTROPHIL # 12.3 10^3/ul (1.6-7.5); NEUTROPHILS % 86.2 % (39.0-77.0); PLATELET COUNT 276 10^3/UL (140-415); RED BLOOD COUNT 2.84 10^6/ul (4.20-5.40); WHITE BLOOD COUNT 14.2 10^3/ul (4.8-10.8)
[2017-02-28 14:02] LABS: ALBUMIN 2.5 g/dl (3.3-4.9); ALBUMIN/GLOBULIN RATIO 0.71; BILIRUBIN,INDIRECT 0.4 mg/dl (0-1.1); BILIRUBIN,TOTAL 0.4 mg/dl (0.2-1.3); CALCIUM 8.4 mg/dl (8.4-10.2); CREATININE 0.6 mg/dl (0.44-1.00); POTASSIUM 3.4 mmol/L (3.5-5.1)
--- NOTE | 2017-02-28 15:53 | QN ---
Documentation Comment Post daY 3 Afebrile Vital signs are stable Abdomen moderately distended. Good bowel sounds, had small bowel movement after Fleet's enema, KUB indicating gas in the colon, patient is able to pass flatus, incision dry, lochia moderate, extremity normal, all her post laboratory work are within normal, plan of a.m. discharge discussed with patient FCO OLEARY MD Feb 28, 2017 15:53
[2017-02-28 16:10] VITALS: BP 124/58; PULSE 98; RESP 20
[2017-02-28 20:26] VITALS: BP 142/64; PULSE 107; RESP 18
[2017-03-01] MEDS: OXYCODONE/ACETAMINOPHEN (5/325) TAB PO PRN ×2 (02:18→10:13)
[2017-03-01 03:48] VITALS: BP 137/70; PULSE 115; RESP 19
[2017-03-01] MEDS: HYDROCODONE/APAP (5/325) TAB PO PRN ×2 (05:51→13:34)
[2017-03-01 08:00] VITALS: BP 133/70; PULSE 102; RESP 18
[2017-03-01] MEDS: SENNA/DOCUSATE NA (8.6MG/50MG) TAB PO SCH (10:12)
[2017-03-01] MEDS: FERROUS SULFATE (EC) 325 MG TAB PO SCH (10:12)
--- NOTE | 2017-03-01 10:16 | DS ---
Date/Time of Note Date/Time of Note DATE: 03/01/17 TIME: 10:15 Discharge Summary Admission/Discharge Info Admit Date/Time Feb 25, 2017 at 09:00 Discharge Date/Time March 01, 2017 at 10 AM Discharge Diagnosis Post primary day for Patient Condition: Good Procedures Primary emergency for prolapsed cord Hx of Present Illness Term , in labor, prolapsed cord Hospital Course Satisfactory uneventful Home Meds Reported Medications Pnv Cmb#21/Iron/Folic Acid ( Complete Caplet) 1 Each Tablet, 1 EACH PO DAILY, TAB 02/22/17 Follow-up Plan Post instructions given recommended to make appointment to be seen at the clinic in 1 week Primary Care Provider Care Physician No Primary Time spent on discharge: < 30 minutes Pending Labs Laboratory Tests Test 02/28/17 13:15 White Blood Count 14.210^3/ul (4.8-10.8) Red Blood Count 2.8410^6/ul (4.20-5.40) Hemoglobin 8.7g/dl (12.0-16.0) Hematocrit 25.5% (37.0-47.0) Mean Corpuscular Volume 89.8fl (82.0-101.0) Mean Corpuscular Hemoglobin 30.6pg (29.0-33.0) Mean Corpuscular Hemoglobin Concent 34.1g/dl (32.0-37.0) Red Cell Distribution Width 14.0% (11.5-14.5) Platelet Count 62428^3/UL (140-415) Mean Platelet Volume 9.5fl (7.4-10.4) Neutrophils % 86.2% (39.0-77.0) Lymphocytes % 6.7% (15.0-51.0) Monocytes % 4.1% (0.0-11.0) Eosinophils % 2.0% (0.0-7.0) Basophils % 0.3% (0.0-2.0) Nucleated Red Blood Cells % 0.0/100WBC (0.0-0.0) Neutrophils # 12.310^3/ul (1.6-7.5) Lymphocytes # 1.010^3/ul (0.8-2.9) Monocytes # 0.610^3/ul (0.3-0.9) Eosinophils # 0.310^3/ul (0.0-0.5) Basophils # 0.010^3/ul (0.0-0.1) Nucleated Red Blood Cells # 0.010^3/ul (0.0-0.0) Sodium Level 135mmol/L (135-144) Potassium Level 3.4mmol/L (3.5-5.1) Chloride Level 101mmol/L (97-110) Carbon Dioxide Level 26mmol/L (21-31) Anion Gap 11 (8-16) Blood Urea Nitrogen 10mg/dl (7-20) Creatinine 0.60mg/dl (0.44-1.00) Glucose Level 91mg/dl (70-220) Calcium Level 8.4mg/dl (8.4-10.2) Total Bilirubin 0.4mg/dl (0.2-1.3) Direct Bilirubin 0.00mg/dl (0.00-0.20) Indirect Bilirubin 0.4mg/dl (0-1.1) Aspartate Amino Transf (AST/SGOT) 19IU/L (15-46) Alanine Aminotransferase (ALT/SGPT) 23IU/L (13-69) Alkaline Phosphatase 99IU/L (42-121) Total Protein 6.0g/dl (6.1-8.1) Albumin 2.5g/dl (3.3-4.9) Globulin 3.50g/dl (1.3-3.2) Albumin/Globulin Ratio 0.71 FCO OLEARY MD Mar 01, 2017 10:16
[2017-03-02] MEDS ORDERED: DIPHTH/TET/ACEL PERTUSS (ADULT) 0.5 ML VIAL IM* ONE (08:00)
== END 2017-03-01 16:20 | disposition home or self-care (01) | DRG 766 ==
LOC: OBT 08:25 → L-D 08:26 → OBT 09:00 → L-D 09:00 → PP1 15:27
PROVIDERS: ADMIT Obstetrics & Gynecology; ATTEND Obstetrics & Gynecology
PROC: 4A1HXCZ Monitoring of Products of Conception, Cardiac Rate, External Approach (ICD-10-PCS; 2017-02-25)
PROC: 4A033R1 Measurement of Arterial Saturation, Peripheral, Percutaneous Approach (ICD-10-PCS; 2017-02-25)
PROC: 10D00Z1 Extraction of Products of Conception, Low, Open Approach (ICD-10-PCS; principal; 2017-02-25 12:15)
PROC: 3E0234Z Introduction of Serum, Toxoid and Vaccine into Muscle, Percutaneous Approach (ICD-10-PCS; 2017-02-27)
PROC: 3E0234Z Introduction of Serum, Toxoid and Vaccine into Muscle, Percutaneous Approach (ICD-10-PCS; 2017-03-01)
DX: O69.0XX0 Labor and delivery complicated by prolapse of cord, not applicable or unspecified (principal); O76 Abnormality in fetal heart rate and rhythm complicating labor and delivery; Z3A.39 39 weeks gestation of pregnancy; Z37.0 Single live birth; Z23 Encounter for immunization
CPT/HCPCS: 36415; 36600; 62319; 74000; 80053; 82803; 85025; 85610; 85730; 86592; 86703; 86762; 86900; 86901; 87340; 88307; 90686; 90715; 94760; 99464; G0463; J0290; J0456; J0690; J1885; J2210; J2270; J2274; J2370; J2405; J2590; J2765; J3010; J7120

== ENCOUNTER 2017-04-08 14:01 | Emergency (ER) | END 2017-04-08 23:19 | disposition home or self-care (01) ==